=== PATIENT | male | born 2000 | race Caucasian/White ===

== ENCOUNTER 2021-04-14 14:15 | Emergency (ER) | payer OTHER ==
[2021-04-14 14:22] VITALS: BP 144/79; PULSE 65; TEMP 99; BMI 24.3
[2021-04-14] MEDS ORDERED: ACETAMINOPHEN 325 MG TABLET (FP) PO ONE (14:50)
[2021-04-14] MEDS ORDERED: ACETAMINOPHEN 325 MG TABLET (FP) ONE (14:55)
== END 2021-04-14 16:20 | disposition home or self-care (01) ==
LOC: FER 14:15
DX: M25.531 Pain in right wrist (principal); W01.0XXA Fall on same level from slipping, tripping and stumbling without subsequent striking against object, initial encounter; Y93.89 Activity, other specified
CPT/HCPCS: 73110-TC-RT-FY; 73130-TC-RT-FY; 99283-25